=== PATIENT | female | born 1995 | race Two or more races ===

== ENCOUNTER 2024-02-22 14:44 | Emergency (ER) | payer MEDICAID, OTHER ==
[~2024-02-22] VITALS: Ht 162.6 cm; Wt 51.9 kg
[2024-02-22 14:57] VITALS: BP 105/61; PULSE 74; RESP 16; O2SAT 98
[2024-02-22] MEDS ORDERED: MONT10TA23 PO (17:38)
[2024-02-22] MEDS ORDERED: AZITTAB PO (17:38)
== END 2024-02-22 21:53 | disposition home or self-care (01) ==
LOC: ER 14:44
DX: J06.9 Acute upper respiratory infection, unspecified (principal)